=== PATIENT | female | born 1955 ===

== ENCOUNTER 2018-01-31 15:27 | Emergency (ER) | payer OTHER ==
[2018-01-31 15:42] VITALS: BP 125/81; PULSE 75; RESP 18; TEMP 98.4; O2SAT 95
--- NOTE | 2018-01-31 16:08 | C.PDOC ---
History Of Present Illness 62yo female, comes to ER for evaluation of left 2nd digit injury prior to arrival. Patient states the bathroom door smashed into her hand, injuring the tip of her left 2nd digit. She denies any numbness, tingling, weakness, or other injuries. Time Seen by Provider: 01/31/18 15:47 Chief Complaint (Nursing): Finger,Hand,&Wrist History Per: Patient History/Exam Limitations: no limitations Onset/Duration Of Symptoms: Mins Current Symptoms Are (Timing): Still Present Quality: "Pain" Exacerbating Factor(s): Strenuous Use Of Affected Area Additional History Per: Patient Past Medical History Reviewed: Historical Data, Nursing Documentation, Vital Signs Vital Signs: Last Vital Signs Temp 98.4 F 01/31/18 15:39 Pulse 75 01/31/18 15:39 Resp 18 01/31/18 15:39 BP 125/81 01/31/18 15:39 Pulse Ox 95 01/31/18 16:08 - Medical History PMH: Asthma, Hypothyroidism Surgical History: No Surg Hx Family History: States: No Known Family Hx - Social History Hx Alcohol Use: No Hx Substance Use: No Review Of Systems Except As Marked, All Systems Reviewed And Found Negative. Musculoskeletal: Positive for: Hand Pain (left 2nd digit injury) Neurological: Negative for: Weakness, Numbness Physical Exam - Physical Exam Appears: Non-toxic, No Acute Distress Skin: Warm, Dry Head: Normacephalic Eye(s): bilateral: Normal Inspection Neck: Normal ROM, Supple Chest: Symmetrical Cardiovascular: Rhythm Regular Respiratory: Normal Breath Sounds Extremity: No Normal ROM (+ limited ROM of left 2nd digit due to pain), Capillary Refill (< 2 seconds on all digits of left hand), No Deformity, Swelling (mild swelling to dist tip of left 2nd digit. Nail bed intact, no subungal hemtoma noted.), Other (no gross tendon deficiency noted on left hand. +skin intact) Neurological/Psych: Oriented x3, Normal Motor, Normal Sensation ED Course And Treatment O2 Sat by Pulse Oximetry: 95 (RA) Pulse Ox Interpretation: Normal - Other Rad XR Left hand X-Ray: Interpreted by Me, Viewed By Me Interpretation: ? Ricardo fracture distal phalanx of left 2nd digit Progress Note: Patient given Motrin and Tylenol PO for pain relief. XR Left hand 2nd digit ordered. XR reviewed with (?) Ricardo fracture; finger placed in finger splint. Post application exam shows finger is neurovascularly intact. Patient stable upon discharge home; instructed to follow up in clinic without fail. Disposition Counseled Patient/Family Regarding: Studies Performed, Diagnosis, Need For Followup - Disposition Referrals: [facility] [Outside] [facility] [Outside] Disposition: HOME/ ROUTINE Disposition Time: 16:07 Condition: IMPROVED Prescriptions: Acetaminophen [Tylenol 325mg tab] 650 mg PO Q6 #30 tab Ibuprofen [Motrin] 600 mg PO Q6 #30 tab Instructions: Finger Fracture (DC) Forms: [employer] (Ugandan), Work Excuse Print Language: DIVEHI - Clinical Impression Clinical Impression: Closed fracture of tuft of distal phalanx of finger - Scribe Statement The provider has reviewed the documentation as recorded by the Young Daniels Provider Attestation: All medical record entries made by the Young were at my direction and personally dictated by me. I have reviewed the chart and agree that the record accurately reflects my personal performance of the history, physical exam, medical decision making, and the department course for this patient. I have also personally directed, reviewed, and agree with the discharge instructions and disposition.
--- NOTE | 2018-01-31 16:48 | RAD ---
Date of service: 01/31/2018 PROCEDURE: Left Index finger radiographs. HISTORY: TRAUMA COMPARISON: None. TECHNIQUE: AP radiograph of the left hand, as well as spot oblique and lateral images of index finger were obtained. FINDINGS: LEFT INDEX FINGER: A 1 to 2 mm radial sided apparent small erosion second digit area of interest is appreciated. The appearance is not typical for a chip fracture no separate bony density here is seen. 13.7 cortical fracture lines noted. All distal interphalangeal joints appear narrowed. Additional joint-space narrowing at the metacarpal phalangeal joint levels diffusely also suggested. 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 JOINTS: No dislocation. Degenerative and diffuse joint space narrowing as detailed above SOFT TISSUES: No marked soft tissue swelling. Some slight increased soft tissue swelling and density possibly distal 2nd digit. No gas-forming cellulitis. No radiopaque foreign body noted OTHER FINDINGS: None. IMPRESSION: Regarding this 2nd digit no fracture or typical chip fracture fragment seen. Findings more closely simulate a radial sided small erosion. No additional erosions at other levels noted. Conceivably a punctate puncture type prior wound here could simulate this. However this does not appear particularly acute and erosion is favored. Arthrosis as detailed above.
== END 2018-01-31 16:35 | disposition home or self-care (01) ==
LOC: C.ER 15:27
DX: S62.631A Displaced fracture of distal phalanx of left index finger, initial encounter for closed fracture (principal); W23.0XXA Caught, crushed, jammed, or pinched between moving objects, initial encounter; Y92.89 Other specified places as the place of occurrence of the external cause